=== PATIENT | male | born 1945 | race Caucasian/White ===

== ENCOUNTER 2020-10-26 11:01 | Day surgery (SDC) | payer MEDICARE ==
[~2020-10-26] VITALS: Ht 177.8 cm; Wt 73.6 kg
[2020-10-26] MEDS ORDERED: TAMS-11 PO (11:52)
[2020-10-26] MEDS ORDERED: AMLO-211 PO (11:52)
[2020-10-26] MEDS ORDERED: ALLO300T PO (11:52)
[2020-10-26 11:54] VITALS: BP 158/91
[2020-10-26] MEDS ORDERED: CHLORHEXIDINE 15 ML UDC MM ONE (12:00)
[2020-10-26] MEDS ORDERED: LACTATED RINGERS 1,000 ML IV SCH (12:00)
[2020-10-26] MEDS ORDERED: CHLORHEXIDINE 15 ML UDC ONE (12:04)
[2020-10-26 12:47] LABS: ALANINE AMINOTRANSFERASE 23 U/L (12-78); ALBUMIN 3.9 g/dL (3.4-5.0); ANION GAP 6 mmol/L (5-15); CALCIUM 8.8 mg/dL (8.5-10.1); CHLORIDE 110 mmol/L (98-107); CREATININE 0.94 mg/dL (0.7-1.3)
[2020-10-26 12:49] LABS: ALKALINE PHOSPHATASE 60 U/L (45-117); BILIRUBIN,TOTAL 0.6 mg/dL (0.2-1.0); TOTAL PROTEIN 7.8 g/dL (6.4-8.2)
[2020-10-26] MEDS ORDERED: MIDAZOLAM 1 MG/ML, 2ML ONE (13:00)
[2020-10-26] MEDS ORDERED: FENTANYL PF 250 MCG/5ML ONE (13:00)
[2020-10-26] MEDS ORDERED: CEFAZOLIN 1,000 MG ONE ×2 (13:02→13:16)
[2020-10-26] MEDS ORDERED: DEXAMETHASONE 4 MG/ML, 1ML ONE ×2 (13:02→13:16)
[2020-10-26] MEDS ORDERED: ROCURONIUM 10 MG/ML,10ML ONE (13:03)
[2020-10-26] MEDS ORDERED: SUCCINYLCHOLINE 20 MG/ML, 10ML ONE (13:03)
[2020-10-26] MEDS ORDERED: PROPOFOL 10 MG/ML, 20ML ONE (13:03)
[2020-10-26] MEDS ORDERED: LIDOCAINE-MPF 2% ,5ML ONE (13:16)
[2020-10-26] MEDS ORDERED: ALBUTEROL SULFATE 2.5 MG/3 ML NPPB PRN (13:30)
[2020-10-26] MEDS ORDERED: DIPHENHYDRAMINE 50 MG/ML, 1ML IVPush PRN ×2 (13:30)
[2020-10-26] MEDS ORDERED: hydrALAzine 20 MG/ML, 1ML IV PRN (13:30)
[2020-10-26] MEDS ORDERED: EPHEDRINE 50 MG/ML, 1ML IVPush PRN (13:30)
[2020-10-26] MEDS ORDERED: HYDROmorphone 1 MG/ML, 1ML INJ IVPush PRN (13:30)
[2020-10-26] MEDS ORDERED: LABETALOL 5MG/ML, 20ML IV PRN (13:30)
[2020-10-26] MEDS ORDERED: DIAZEPAM 5 MG/ML, 2ML IVPush PRN (13:30)
[2020-10-26] MEDS ORDERED: PROMETHAZINE 12.5 MG SUPP PR PRN (13:30)
[2020-10-26] MEDS ORDERED: MEPERIDINE/PF 25MG/0.5ML IVPush PRN (13:30)
[2020-10-26] MEDS ORDERED: PROMETHAZINE 25 MG/ML, 1ML IVPush PRN (13:30)
[2020-10-26] MEDS ORDERED: ACETAMINOPHEN 325 MG TABLET PO PRN (13:30)
[2020-10-26] MEDS ORDERED: ONDANSETRON 2MG/ML, 2ML IVPush PRN (13:30)
[2020-10-26] MEDS ORDERED: MIDAZOLAM 1 MG/ML, 2ML IV PRN (13:30)
[2020-10-26] MEDS ORDERED: FENTANYL PF 100 MCG/2ML ONE ×2 (14:02→15:05)
[2020-10-26] MEDS ORDERED: ONDANSETRON 2MG/ML, 2ML ONE (14:29)
[2020-10-26] MEDS ORDERED: OXYcodone 5 MG/5 ML ORAL.SOL UDC ONE ×2 (15:05→15:33)
[2020-10-26] MEDS: OXYcodone 5 MG/5 ML ORAL.SOL UDC PO PRN ×2 (15:05→15:30)
[2020-10-26] MEDS: FENTANYL PF 100 MCG/2ML IV PRN ×2 (15:10→15:15)
[2020-10-26] MEDS ORDERED: HYDROmorphone 1 MG/ML, 1ML INJ ONE (15:33)
== END 2020-10-26 17:45 | disposition home or self-care (01) ==
LOC: OUT 11:01
PROVIDERS: ATTEND Orthopaedic Surgery
DX: S82.121A Displaced fracture of lateral condyle of right tibia, initial encounter for closed fracture (principal); S83.281A Other tear of lateral meniscus, current injury, right knee, initial encounter; G89.18 Other acute postprocedural pain; I10 Essential (primary) hypertension; E78.00 Pure hypercholesterolemia, unspecified; M10.9 Gout, unspecified; N40.0 Benign prostatic hyperplasia without lower urinary tract symptoms; Z20.822 Contact with and (suspected) exposure to COVID-19; Z79.82 Long term (current) use of aspirin; Z79.899 Other long term (current) drug therapy; W22.8XXA Striking against or struck by other objects, initial encounter; Y93.23 Activity, snow (alpine) (downhill) skiing, snowboarding, sledding, tobogganing and snow tubing; Y92.89 Other specified places as the place of occurrence of the external cause; Y99.8 Other external cause status
CPT/HCPCS: 27403; 27535; 36415; 64447; 73564; 80053; 87635; 93005; C1713; C9359; J0330; J0690; J1100; J1170; J2250; J2405; J2704; J3010; J7120; 76000